=== PATIENT | female | born 1985 | race American Indian/Alaskan Native ===

== ENCOUNTER 2017-03-04 07:05 | Day surgery (SDC) | payer MEDICARE ==
[~2017-03-04 07:05] MED LIST: NACL 0.9% 1000 ML 1,000 ML IV SCH; PEPCID PO NR; VERSED IV NR
--- NOTE | 2017-03-04 07:18 | Short Stay Summary ---
Short Stay Documentation Date of service: 03/04/17 Narrative H&P: Pt is a 31yo BF LMP 02/08/17 presents with a retained IUD unable to be removed in the office after several attempts. She now presents for Hysteroscopic retrieval. - History Principal diagnosis: Retained IUD H&P: obtained from office Past Medical History: No medical history Past Surgical History: (x2) Social history: no significant social history, single - Allergies and Medications Current Medications: Allergies No Known Allergies Allergy (Unverified 02/28/17 18:11) Home Medications Medication Instructions Recorded Confirmed Last Taken Type Folic Acid 20 mg PO QDAY 02/28/17 02/28/17 Unknown History Methotrexate(Dose Weekly Only) 6 tab PO QWEEK 02/28/17 02/28/17 Unknown History Prednisone [predniSONE] 2.5 mg PO BID 02/28/17 02/28/17 Unknown History Active Medications Famotidine (Pepcid) 20 mg PO PREOP NR Stop: 03/04/17 23:45 Sodium Chloride (Nacl 0.9% 1000 Ml) 1,000 mls @ 100 mls/hr IV DIRECT MYLES Midazolam HCl (Versed) 2 mg IV PREOP NR Stop: 03/04/17 23:59 - Physical exam General appearance: no acute distress Integumentary: no rash HEENT: Atraumatic Lungs: Clear to auscultation Breasts: deferred Heart: Regular rate Gastrointestinal: normal Female Genitourinary: deferred Rectal Exam: deferred Extremities: No edema Neurological: Normal gait, Normal speech - Brief post op/procedure progress note Date of procedure: 03/04/17 Pre-op diagnosis: Retained IUD Post-op diagnosis: same Procedure: Hysteroscopic retrieval of IUD Anesthesia: MAC Findings: Normal uterus with IUD within the uterine cavity Surgeon: CARLY BUI Estimated blood loss: minimal Pathology: list (IUD) Specimen disposition: to lab Condition: stable - Hospital course Hospital course: Unremarkable. - Disposition Condition at discharge: Good Disposition: [id number] TO HOME OR SELFCARE - Discharge Diagnoses (1) Malpositioned intrauterine device (IUD) Status: Resolved Qualifiers: Encounter type: subsequent encounter Qualified Code(s): T83.32XD - Displacement of intrauterine contraceptive device, subsequent encounter Short Stay Discharge Plan Activity: no restrictions Diet: regular Follow up with: KAMILLA BUI MD [Primary Care Provider] - 7 Days CARLY BUI MD [Staff Physician] - 14 Days Prescriptions: HYDROcodone/APAP 5-325 [[place] 5/325] 1 each PO Q6HR PRN #7 tablet PRN Reason: Pain
[2017-03-04] MEDS ORDERED: NACL BACTERIOSTATIC INFILTRATI ONE (07:49)
--- NOTE | 2017-03-04 07:53 | Anesthesia Day of Surgery ---
Anesthesia Day of Surgery - Day of Surgery Patient Examined: Yes Patient H&P Reviewed: Yes Patient is NPO: Yes
--- NOTE | 2017-03-04 07:53 | Anesthesia Consultation ---
Anesthesia Consult and Med Hx Date of service: 03/04/17 - Airway Anesthetic Teeth Evaluation: Good, Chipped (front left tooth) ROM Head & Neck: Adequate Mental/Hyoid Distance: Adequate Mallampati Class: Class I Intubation Access Assessment: Good - Pulmonary Exam CTA: Yes - Cardiac Exam Cardiac Exam: RRR - Pre-Operative Health Status ASA Pre-Surgery Classification: ASA1 Proposed Anesthetic Plan: General - Central Nervous System Hx Psychiatric Problems: No - Hematic Hx Anemia: Yes - Other Systems Hx Cancer: No - Additional Comments Anesthesia Medical History Comments:
[2017-03-04] MEDS ORDERED: ANCEF/STERILE WATER 2 GM/20 ML 2 GM/20 ML SYRINGE IV NR (08:00)
[2017-03-04] MEDS ORDERED: DIPRIVAN 10 MG/ML IV ONE (08:05)
[2017-03-04] MEDS ORDERED: SUBLIMAZE ONE (08:05)
[2017-03-04] MEDS ORDERED: XYLOCAINE MPF 2% ONE (08:05)
[2017-03-04 08:15] LABS: Hematocrit 40.1 % (30.3-42.9); Hemoglobin 13.3 gm/dl (10.1-14.3)
[2017-03-04] MEDS ORDERED: DILAUDID IV PRN (08:39)
[2017-03-04] MEDS ORDERED: SILVER NITRATE TP ONE ×2 (08:41)
[2017-03-04] MEDS ORDERED: NACL 0.9% IR ONE (09:10)
[2017-03-04] MEDS ORDERED: ZOFRAN ONE (09:23)
--- NOTE | 2017-03-04 09:37 | Operative Report ---
Operative Report Operative Report: Date of procedure: 03/04/2017 Pre-operative diagnosis: 1. Malpositioned IUD 2. Retained IUD Post-operative diagnosis: Same Procedure name(s): Hysteroscopic retrieval of retained IUD Surgeon: Willie Segura MD Active Directory Administrator: None Anesthesia: General Mac EBL: Minimal less than 5 mL's Findings: A normal uterus with the IUD visible in the endometrial cavity and easily retrieved. Procedure: After the patient was correctly identified, she was prepped and draped in usual sterile fashion and placed in dorsolithotomy position. First the bladder was emptied using a straight catheter, a speculum was placed in vaginal vault and the anterior lip of the cervix was grasped using single-tooth tenaculum. The cervical os was sequentially dilated, and the hysteroscope was introduced into the uterine cavity revealing the IUD, which was grasped and easily retrieved, and sent to pathology. At this point the procedure was considered complete. All instruments removed from the vagina, the patient tolerated the procedure well was transported to recovery in stable condition.
[2017-03-04] MEDS ORDERED: PERCOCET 5/325 PO PRN (10:00)
--- NOTE | 2017-03-04 10:11 | Post Anesthesia Evaluation ---
- Post Anesthesia Evaluation Patient Participated: Yes Airway Patent: Yes Stable Respiratory Function: Yes Nausea/Vomiting: No Temp > 96.8F: Yes Pain Manageable: Yes Adequeate Hydration: Yes Anesthesia Complications: No Block Receding Appropriately: Not Applicable Patient on Ventilator: No
[2017-03-04 10:36] VITALS: BP 104/67
[2017-03-04] MEDS ORDERED: TRANSDERM-SCOP TD ONE (13:00)
== END 2017-03-04 11:07 | disposition home or self-care (01) ==
LOC: OR 07:05
PROVIDERS: ATTEND Obstetrics & Gynecology
DX: T83.32XA Displacement of intrauterine contraceptive device, initial encounter (principal); D64.9 Anemia, unspecified; M06.9 Rheumatoid arthritis, unspecified; Z98.890 Other specified postprocedural states; Z79.899 Other long term (current) drug therapy; Y83.8 Other surgical procedures as the cause of abnormal reaction of the patient, or of later complication, without mention of misadventure at the time of the procedure
CPT/HCPCS: 36415; 58562; 85014; 85018; 88302; A4217; J0690; J1720; J2250; J2405; J2704; J3010; J7030; 81025; 88300